=== PATIENT | female | born 1995 | race Caucasian/White ===

== ENCOUNTER 2021-06-18 04:25 | Emergency (ER) | payer OTHER ==
[~2021-06-18 04:25] MED LIST: BACTRIM DS TAB1 EACH PO; CEPHALEXIN500 M1 PO; CLEOCIN HCL300 MG PO; PROTONIX40 MG PO
== END 2021-06-18 06:06 | disposition left against medical advice (07) ==
LOC: ER1 04:25
DX: Z53.21 Procedure and treatment not carried out due to patient leaving prior to being seen by health care provider (principal)

== ENCOUNTER 2021-06-19 18:47 | Emergency (ER) | payer OTHER | END 2021-06-19 19:02 | disposition left against medical advice (07) | LOC: ER1 18:47 | DX: Z53.21 Procedure and treatment not carried out due to patient leaving prior to being seen by health care provider (principal) ==

== ENCOUNTER 2021-06-19 19:09 | Emergency (ER) | payer OTHER | END 2021-06-20 07:39 | disposition home or self-care (01) | LOC: ER1 19:09 | DX: F32.A Depression, unspecified (principal); F41.9 Anxiety disorder, unspecified; R44.3 Hallucinations, unspecified; F17.210 Nicotine dependence, cigarettes, uncomplicated | CPT/HCPCS: 81001; 99284 ==